=== PATIENT | female | born 1980 | race African-American/Black ===

== ENCOUNTER 2019-06-12 23:31 | Inpatient (IN) ==
[2019-06-12] MEDS ORDERED: BUTORPHANOL 2 MG/ML VIAL IV PRN (23:43)
[2019-06-12] MEDS ORDERED: TERBUTALINE 1 MG/1 ML VIAL SUBCUT PRN (23:43)
[2019-06-12] MEDS ORDERED: OXYTOCIN/LR 20 UNIT/1,000 ML BAG IV SCH (23:45)
[2019-06-12 23:59] LABS: Basophils % 0.2 % (0.0-0.8); Eosinophils # 0.1 10*3/uL (0.0-0.87); Eosinophils % 1.1 % (0.00-10.9); Hematocrit 30.8 VOL% (35.7-47.0); Immature Granulocytes % 0.6 %; Immature Granulocytes Absolute 0.05 #; Lymphocytes # 1.8 10*3/uL (1.4-4.0); Lymphocytes % 22.3 % (21.3-54.2); Mean Corpuscular HGB Conc 32.5 GM/DL (32-36); Mean Corpuscular Volume 89.5 FL (87-102); Monocytes % 7.6 % (1.7-12.7); Neutrophils % 68.2 % (38.7-73.9); Platelet Count 280 T/CUMM (130-400); Red Blood Count 3.44 MC/CUMM (3.8-5.5); Red Cell Distribution Width 15.2 % (9.3-17.3)
[2019-06-13] MEDS ORDERED: AMPICILLIN INJ 2,000 MG in SODIUM CHLORIDE 0.9% 100 ML IV ONE (00:30)
[2019-06-13 00:36] LABS: Alanine Aminotransferase 17 U/L (13-56); Albumin 2.6 G/DL (3.4-5.0); Alkaline Phosphatase 149 U/L (45-117); Aspartate Amino Transferase 14 U/L (0-37); Bilirubin,Total < 0.39 MG/DL (0.2-1.0); Blood Urea Nitrogen 8 MG/DL (7-18); Calcium 9.7 MG/DL (8.5-10.1); Estimated Glom Filtration Rate 178 ML/MIN; Glucose 82 MG/DL (74-106); Osmolality,Calculated 275.4 MOS/KG (273-304); Total Protein 7.4 G/DL (6.4-8.3)
[2019-06-13] MEDS: LACTATED RINGERS 1,000 ML IV SCH ×3 (01:21→17:58)
[2019-06-13] MEDS: AMPICILLIN INJ 1,000 MG in SODIUM CHLORIDE 0.9% 100 ML IV SCH ×5 (07:52→23:45)
[2019-06-13] MEDS: ONDANSETRON 4 MG/2 ML VIAL IV PRN ×2 (13:36→19:17)
[2019-06-13] MEDS ORDERED: CITRIC ACID/SODIUM CITRATE 30 ML UDCUP PO ONE (16:41)
[2019-06-13] MEDS ORDERED: hydrOXYzine HCL 25 MG/1 ML VIAL IM PRN (16:41)
[2019-06-13] MEDS ORDERED: NALOXONE 0.4 MG/ML VIAL IV PRN (16:41)
[2019-06-13] MEDS ORDERED: diphenhydrAMINE 50 MG/1 ML VIAL IV PRN (16:41)
[2019-06-13] MEDS ORDERED: FAMOTIDINE 20 MG/2 ML VIAL IV ONE (16:41)
[2019-06-13] MEDS ORDERED: fentaNYL 2 MCG/ROPIV 0.2% EPID 100 ML EPIDURAL SCH (17:00)
[2019-06-13] MEDS: ePHEDrine 50 MG/ML AMP IV PRN ×2 (17:51→17:57)
[2019-06-13 18:58] LABS: Apearance,Urine CLEAR (Clear); Bilirubin,Urine Negative (Negative); Blood, Urine Negative (Negative); Glucose,Urine (UA) Negative (Negative); Hyaline Casts,Urine 1 /LPF (0-3); Ketones,Urine 20 mg/dL (Negative); Mucus,Urine Occasional /LPF (Occasional); Nitrite,Urine Negative (Negative); Protein,Urine Negative; RBC,Urine <1 /HPF (0-4); Squamous Epithelial Cell,Urine Occasional /HPF (0-10); Urine Color Yellow (Yellow); Urine Specific Gravity 1.016 (1.001-1.035); Urine Urobilinogen < 2.0 EU/DL (0.2-1.0); WBC,Urine 1 /HPF (0-6)
[2019-06-14] MEDS ORDERED: ceFAZolin 3,000 MG in SYRINGE 1 EACH IV ONE (00:25)
[2019-06-14] MEDS ORDERED: LIDOCAINE MPF 2% /EPI 20 ML VIAL ONE (00:39)
[2019-06-14] MEDS ORDERED: METHYLERGONOVINE 0.2 MG/1 ML AMP ONE ×2 (01:24→03:36)
[2019-06-14] MEDS: OXYTOCIN/LR 20 UNIT/1,000 ML BAG IV PRN ×2 (01:35→03:05)
[2019-06-14 01:52] LABS: Cord Venous Blood HCO3 22.6 MMOL/L; Cord Venous Blood PCO2 43.2 MMHG; Cord Venous Blood PO2 34.7 MMHG
[2019-06-14] MEDS ORDERED: SODIUM CHLORIDE 0.9% 1,000 ML IV PRN ×2 (01:53→01:57)
[2019-06-14] MEDS ORDERED: PHENYLEPHRINE 1 MG/10 ML SYRINGE IV ONE (03:00)
[2019-06-14] MEDS ORDERED: MORPHINE 10 MG/10 ML VIAL ONE (03:01)
[2019-06-14] MEDS ORDERED: HYDROmorphone 2 MG/1 ML VIAL IV PRN (03:14)
[2019-06-14 03:41] LABS: Hematocrit 32.5 VOL% (35.7-47.0); Hemoglobin 10.5 GM/DL (12.0-16.0)
[2019-06-14] MEDS ORDERED: ACETAMINOPHEN 325 MG TABLET PO PRN (05:39)
[2019-06-14] MEDS ORDERED: RHO(D) IMMUNE GLOBULIN 300 MCG SYRINGE IM ONE (05:39)
[2019-06-14] MEDS ORDERED: MAGNESIUM HYDROXIDE SUSP 30 ML UDCUP PO PRN (05:39)
[2019-06-14] MEDS ORDERED: diphenhydrAMINE CAP 25 MG CAPSULE PO PRN (08:46)
[2019-06-14] MEDS: ONDANSETRON 4 MG/2 ML VIAL IV PRN ×2 (09:01→17:40)
[2019-06-14] MEDS: ceFAZolin 2,000 MG in SYRINGE 1 EACH IV SCH ×2 (09:05→17:20)
[2019-06-14] MEDS: MULTIVITAMIN (PRENATAL) TABLET PO SCH (09:53)
[2019-06-14] MEDS: DOCUSATE SODIUM 100 MG CAPSULE PO SCH ×2 (09:53→21:20)
[2019-06-14] MEDS: LACTATED RINGERS 1,000 ML IV SCH (10:45)
[2019-06-14 11:05] LABS: Basophils % 0.1 % (0.0-0.8); Eosinophils % 0.2 % (0.00-10.9); Hematocrit 30.6 VOL% (35.7-47.0); Hemoglobin 10.2 GM/DL (12.0-16.0); Immature Granulocytes % 0.5 %; Immature Granulocytes Absolute 0.06 #; Lymphocytes # 0.7 10*3/uL (1.4-4.0); Lymphocytes % 6.4 % (21.3-54.2); Mean Corpuscular HGB Conc 33.3 GM/DL (32-36); Mean Corpuscular Volume 88.4 FL (87-102); Mean Platelet Volume 8.9 FL (9.6-12.0); Monocytes % 5.3 % (1.7-12.7); Neutrophils % 87.5 % (38.7-73.9); Platelet Count 209 T/CUMM (130-400); Red Blood Count 3.46 MC/CUMM (3.8-5.5); Red Cell Distribution Width 15.2 % (9.3-17.3)
[2019-06-14] MEDS: SIMETHICONE CHEW 80 MG TABLET PO PRN (21:20)
[2019-06-15] MEDS: ceFAZolin 2,000 MG in SYRINGE 1 EACH IV SCH (00:19)
[2019-06-15] MEDS: IBUPROFEN 800 MG TABLET PO PRN ×3 (03:59→19:34)
[2019-06-15 05:34] LABS: Basophils % 0.2 % (0.0-0.8); Eosinophils # 0.1 10*3/uL (0.0-0.87); Eosinophils % 0.8 % (0.00-10.9); Hematocrit 26.1 VOL% (35.7-47.0); Hemoglobin 8.7 GM/DL (12.0-16.0); Immature Granulocytes % 0.4 %; Immature Granulocytes Absolute 0.04 #; Lymphocytes # 1.3 10*3/uL (1.4-4.0); Lymphocytes % 12.7 % (21.3-54.2); Mean Corpuscular HGB Conc 33.3 GM/DL (32-36); Mean Corpuscular Volume 87.6 FL (87-102); Monocytes % 7.5 % (1.7-12.7); Neutrophils % 78.4 % (38.7-73.9); Platelet Count 189 T/CUMM (130-400); Red Blood Count 2.98 MC/CUMM (3.8-5.5); White Blood Count 10.4 T/CUMM (4-12)
[2019-06-15] MEDS: MULTIVITAMIN (PRENATAL) TABLET PO SCH (09:20)
[2019-06-15] MEDS: SIMETHICONE CHEW 80 MG TABLET PO PRN (09:20)
[2019-06-15] MEDS: DOCUSATE SODIUM 100 MG CAPSULE PO SCH ×3 (09:20→21:54)
[2019-06-16] MEDS: IBUPROFEN 800 MG TABLET PO PRN (03:23)
[2019-06-16 07:09] VITALS: BP 113/53
[2019-06-16] MEDS: MULTIVITAMIN (PRENATAL) TABLET PO SCH (08:45)
[2019-06-16] MEDS: DOCUSATE SODIUM 100 MG CAPSULE PO SCH (08:45)
== END 2019-06-16 12:00 | disposition home or self-care (01) | DRG 540 ==
LOC: N.LDOUT 23:31 → N.LD 23:33 → N.OB 06-14 05:30
PROVIDERS: ADMIT Obstetrics & Gynecology; ATTEND Obstetrics & Gynecology